=== PATIENT | female | born 1955 | race Caucasian/White ===

== ENCOUNTER 2024-02-19 16:17 | Emergency (ER) | payer OTHER ==
[~2024-02-19] VITALS: Ht 152.4 cm; Wt 68.0 kg
[2024-02-19 16:37] LABS: HEMATOCRIT 39.4 % (36-48); MEAN CORPUSCULAR HEMOGLOBIN 25.9 pg (27.0-33.0); MEAN CORPUSCULAR HGB CONC 31.2 g/dL (32.0-36.0); MEAN CORPUSCULAR VOLUME 82.9 fL (79-99); RED BLOOD CELL COUNT(AUTO) 4.75 MIL/uL (4.00-5.50); RED CELL DISTRIBUTION WIDTH 16.4 % (11.0-15.5); WHITE BLOOD COUNT (AUTO) 8.3 K/uL (4.8-10.8)
[2024-02-19 17:03] LABS: CREATININE 0.6 mg/dL (0.5-1.0); POTASSIUM 3.4 mmol/L (3.5-5.1)
[2024-02-19] MEDS: hydrALAZine 20MG/ML VIAL IV ONE ×2 (17:23→19:15)
[2024-02-19] MEDS: ondanSETRON 4MG INJ IVP ONE (19:15)
[2024-02-19] MEDS: morPHINE 2 MG SYG IVP ONE (19:16)
[2024-02-19 19:21] VITALS: TEMP 98.6
[2024-02-19 19:45] VITALS: BP 150/63; PULSE 70; RESP 16; O2SAT 96
== END 2024-02-19 20:13 | disposition left against medical advice (07) ==
LOC: EDH 16:17
DX: I10 Essential (primary) hypertension (principal); E11.9 Type 2 diabetes mellitus without complications; E78.5 Hyperlipidemia, unspecified; J44.9 Chronic obstructive pulmonary disease, unspecified; Z88.0 Allergy status to penicillin; Z88.8 Allergy status to other drugs, medicaments and biological substances; Z90.49 Acquired absence of other specified parts of digestive tract; Z98.890 Other specified postprocedural states
CPT/HCPCS: 99285; 96374; 70450; 96375; 84484; 80048; 85027; 36415; 96376; 93005; J2270; J0360 ×2; J2405